=== PATIENT | male | born 1970 | race Caucasian/White ===

== ENCOUNTER 2024-01-24 09:07 | Outpatient (CLI) | payer OTHER ==
--- NOTE | 2024-01-24 17:02 | XRAY Report ---
PROCEDURE: Tib/Fib LT INDICATIONS: SPRAIN TECHNIQUE: 4 views of the tibia and fibula were acquired. COMPARISON: None. FINDINGS: Bones: No fractures or dislocations. Partially visualized postsurgical changes of ACL repair. No key spicious bony lesions. Soft tissues: No suspicious soft tissue calcifications or masses. IMPRESSION: No acute bony abnormality. If pain persists with conservative management, consider repeat radiographs in 10-14 days or cross-sectional imaging. Reviewed by: Hill Sotelo MD on 01/24/2024 5:01 PM PDT Approved by: Hill Sotelo MD on 01/24/2024 5:01 PM PDT Station ID: [id number]
--- NOTE | 2024-01-24 17:31 | XRAY Report ---
PROCEDURE: Ankle 3+V LT INDICATIONS: SPRAIN TECHNIQUE: 2 views of the ankle were acquired. COMPARISON: None. FINDINGS: Bones: Osseous irregularity at the fibular tip. Ankle mortise is normally aligned. No suspicious b lindsay lesions. Soft tissues: No tibiotalar joint effusion. Achilles tendon appears normal. Tiny plantar and Achil les calcaneal enthesophytes. IMPRESSION: Osseous irregularity at the fibular tip suggestive of an age indeterminate injury. Correlate for poin t tenderness. Reviewed by: Hill Sotelo MD on 01/24/2024 5:30 PM PDT Approved by: Hill Sotelo MD on 01/24/2024 5:30 PM PDT Station ID: [id number]
== END 2024-01-24 09:08 | disposition home or self-care (01) ==
LOC: DI.N 09:07
PROVIDERS: ATTEND Physician Assistant Medical
DX: S93.402A Sprain of unspecified ligament of left ankle, initial encounter (principal)

== ENCOUNTER 2024-02-10 13:50 | Outpatient (CLI) | payer OTHER ==
--- NOTE | 2024-02-10 16:04 | MRI Report ---
Ankle LT WO CLINICAL HISTORY: 53 years of age, Male, L ANKLE PAIN. COMPARISON: Correlated with radiograph on 01/24/2024 Technique: Multisequence, multiplanar MRI of the left ankle was performed without contrast. IV CONTRAST: Not given FINDINGS: Tendons: Mild tenosynovitis of the posterior tibialis. The flexor digitorum longus and the flexor diaz luces longus are unremarkable. The extensor tendons are unremarkable. The peroneal tendons are intact . Mild tendinosis of the distal Achilles tendon, without tear. Ligaments: The anterior and posterior tibiofibular ligaments are intact. The anterior and posterior t alofibular ligaments are intact. The calcaneofibular ligament is unremarkable. Mild sprain of the por tion deltoid ligament. Sinus Tarsi: Normal signal without evidence of inflammatory change or fibrosis. Plantar fascia: Normal signal and morphology without evidence of inflammation or tear. Muscles: Visualized intrinsic foot musculature demonstrates normal signal and bulk. Bones and cartilage: Mild marrow edema of the medial talus dome, measuring 6 mm, representing osteoch ondral lesion versus mild marrow contusion. There is marked marrow edema of the plantar aspect of the talus head, without fracture, representing marrow contusion. Mild marrow edema of the medial process of the talus about the deep portion deltoid ligament insertion, reactive. Periosteal avulsion fractu re of the lateral malleolus with associated marrow edema in the lateral malleolus. Marrow edema of th e medial aspect of the navicula, representing marrow contusion. Small area of marrow edema in the pro ximal cuboid, which may be degenerative versus mild marrow contusion as well. Miscellaneous: Tarsal tunnel appears normal. No significant effusion. No ganglion cyst. Mild subcut aneous edema of the medial and lateral ankle, extending to the lateral dorsal mid foot. IMPRESSION: 1.6 mm marrow edema of the medial talus dome, which may represent an osteochondral lesion versus mild marrow contusion. 2.Marked marrow contusion of the plantar aspect of the talus head. 3.Periosteal avulsion fracture of the lateral malleolus, acute. 4.Mild marrow contusion of the medial aspect of navicular. 5.Mild marrow contusion versus degenerative marrow edema of the proximal cuboid. 6.Mild sprain of the deep portion deltoid ligament with adjacent reactive mild marrow edema in the me dial process of the talus. Reviewed by: Criss Shi MD on 02/10/2024 4:02 PM PDT Approved by: Criss Shi MD on 02/10/2024 4:02 PM PDT Station ID: [id number]
== END 2024-02-10 13:51 | disposition home or self-care (01) ==
LOC: DI 13:50
PROVIDERS: ATTEND Nurse Practitioner Family
DX: S82.62XA Displaced fracture of lateral malleolus of left fibula, initial encounter for closed fracture (principal); S93.422A Sprain of deltoid ligament of left ankle, initial encounter

== ENCOUNTER 2024-02-22 09:09 | Outpatient (CLI) | payer OTHER ==
--- NOTE | 2024-02-22 11:37 | XRAY Report ---
Ankle 3+V LT HISTORY: 53 years of age, PAIN IN LEFT ANKLE TECHNIQUE: Ankle 3+V LT COMPARISON: 01/24/2024. FINDINGS/IMPRESSION: Bimalleolar soft tissue swelling, unchanged from prior exam. Nondisplaced small avulsion fracture of the tip of the lateral malleolus, unchanged from prior exam. No definitive interval healing. Posterio r calcaneal and plantar calcaneal enthesophyte. No ankle dislocation. Reviewed by: Criss Shi MD on 02/22/2024 11:35 AM PDT Approved by: Criss Shi MD on 02/22/2024 11:35 AM PDT Station ID: [id number]
== END 2024-02-22 09:10 | disposition home or self-care (01) ==
LOC: DI.N 09:09
PROVIDERS: ATTEND Physician Assistant Surgical
DX: M25.572 Pain in left ankle and joints of left foot (principal); S82.65XA Nondisplaced fracture of lateral malleolus of left fibula, initial encounter for closed fracture; M77.32 Calcaneal spur, left foot; M79.89 Other specified soft tissue disorders